=== PATIENT | male | born 1970 | race Caucasian/White ===

== ENCOUNTER 2020-03-20 14:57 | Emergency (ER) | payer MEDICAID ==
[~2020-03-20] VITALS: Ht 177.8 cm; Wt 105.0 kg
--- NOTE | 2020-03-20 15:10 | NUR ---
PT BIB EMS FROM [facility] FOR PENIS PAIN AND UROLOGY CONSULT. PT STATES HIS PENIS RETRACTED ABOUT 12 DAYS AGO. PT PULLED PENIS OUT AND WAS BLOODY W ALOT OF PAIN. PT DENIES TROUBLE URINATING. DENIES CP, SOB, COUGH OR FEVER
[2020-03-20] MEDS ORDERED: LIDOCAINE-MPF 2% ,5ML ONE ×2 (15:44→18:24)
[2020-03-20] MEDS ORDERED: ONDANSETRON 2MG/ML, 2ML ONE (15:45)
[2020-03-20] MEDS ORDERED: HYDROmorphone 1 MG/ML, 1ML INJ ONE ×2 (15:45→17:53)
[2020-03-20] MEDS: HYDROmorphone 2 MG/ML, 1ML IVPush PRN ×2 (15:47→17:54)
--- NOTE | 2020-03-20 15:57 | NUR ---
MEDICATED PER ORDERS
[2020-03-20] MEDS ORDERED: ONDANSETRON 2MG/ML, 2ML IVPush ONE (16:00)
[2020-03-20] MEDS ORDERED: LIDOCAINE 1%, 10ML INFIL ONE (16:00)
[2020-03-20] MEDS ORDERED: LIDOCAINE-MPF 1%, 5ML ONE ×2 (16:37→18:25)
--- NOTE | 2020-03-20 17:49 | NUR ---
PT CO PAIN, WILL MEDICATE PER ORDERS.
[2020-03-20 18:02] VITALS: BP 134/86
[2020-03-20] MEDS ORDERED: HYDROcodone/APAP 5/325 TABLET ONE (18:43)
--- NOTE | 2020-03-20 18:53 | NUR ---
REPORT RECEIVED FROM JARROD HERNANDEZ.
[2020-03-20] MEDS ORDERED: HYDROcodone/APAP 5/325 TABLET PO ONE (19:00)
--- NOTE | 2020-03-20 19:07 | NUR ---
Patient given discharge instructions and they have confirmed that they understand the instructions.
== END 2020-03-20 19:08 | disposition home or self-care (01) ==
LOC: ED 16:59
DX: N48.1 Balanitis (principal); I99.8 Other disorder of circulatory system; E11.9 Type 2 diabetes mellitus without complications
CPT/HCPCS: 54450; 96374; 96375; 96376; 99284; J1170; J2405